=== PATIENT | female | born 2005 | race Two or more races ===

== ENCOUNTER 2023-05-02 20:55 | Emergency (ER) | payer OTHER ==
[~2023-05-02] VITALS: Ht 160 cm; Wt 79.8 kg
[2023-05-03] MEDS ORDERED: DOLOGESIC 500-1 EACH PO (02:20)
== END 2023-05-03 02:28 ==
LOC: ER 20:56 → EMR PED 21:13
DX: S83.8X2A Sprain of other specified parts of left knee, initial encounter (principal)